=== PATIENT | female | born 1950 | race Caucasian/White ===

== ENCOUNTER 2016-08-07 08:41 | Emergency (ER) | payer MEDICARE, BC, OTHER ==
[~2016-08-07] VITALS: Ht 172.7 cm; Wt 106.1 kg
[2016-08-07] MEDS ORDERED: TYLE325C PO (08:53)
[2016-08-07] MEDS ORDERED: LEVOTAB10 PO (08:53)
[2016-08-07] MEDS ORDERED: BENZ200C44 PO (08:53)
[2016-08-07] MEDS ORDERED: PRED20TA PO (08:53)
[2016-08-07] MEDS ORDERED: ADV250INH INH (08:53)
[2016-08-07] MEDS ORDERED: PROA1AER INH (08:53)
[2016-08-07] MEDS ORDERED: LEVO112T2 PO (08:53)
[2016-08-07 10:12] VITALS: BP 168/98
== END 2016-08-07 10:13 ==
LOC: M ED 09:57
DX: J45.901 Unspecified asthma with (acute) exacerbation (principal); T78.40XA Allergy, unspecified, initial encounter; R21 Rash and other nonspecific skin eruption; J44.9 Chronic obstructive pulmonary disease, unspecified; I10 Essential (primary) hypertension; E11.9 Type 2 diabetes mellitus without complications; E07.9 Disorder of thyroid, unspecified; Z86.73 Personal history of transient ischemic attack (TIA), and cerebral infarction without residual deficits; Z87.891 Personal history of nicotine dependence; Z88.0 Allergy status to penicillin; Z91.018 Allergy to other foods